=== PATIENT | female | born 1965 | race Caucasian/White ===

== ENCOUNTER 2018-10-13 16:30 | Outpatient (CLI) | payer BC ==
--- NOTE | 2018-10-13 17:13 | RAD ---
CHEST TWO VIEW 10/13/18 HISTORY: Lymphadenopathy. COMPARISON: None. FINDINGS: The lungs are clear. No pneumothorax or effusion. The cardiac silhouette and mediastinal contours are within normal limits. IMPRESSION: No acute intrathoracic abnormality. POS: [facility]
== END 2018-10-13 16:31 | disposition home or self-care (01) ==
LOC: BICRAD 16:30
PROVIDERS: ATTEND Internal Medicine
DX: R59.1 Generalized enlarged lymph nodes (principal); Z13.220 Encounter for screening for lipoid disorders; Z13.1 Encounter for screening for diabetes mellitus; E55.9 Vitamin D deficiency, unspecified; R53.83 Other fatigue
CPT/HCPCS: 36415; 71046; 80053; 80061; 81001; 82306; 83036; 84439; 84443; 85025; 85652; 86140; 86160; 86225; 86235; 86376

== ENCOUNTER 2018-10-23 07:54 | Outpatient (CLI) | payer BC ==
--- NOTE | 2018-10-23 10:32 | CT ---
NECK CT WITH IV CONTRAST: Date: 10-23-18 Comparison: None. History: Lymphadenopathy bilaterally for one year. Technique: Axial CT imaging obtained at 3 mm intervals from the skull base through the lung apices wi thout contrast. Coronal and sagittal reformatted imaging obtained. FINDINGS: There is mild mucosal thickening involving the alveolar recess of the right maxillary sinus. The visualized lung apices appear grossly unremarkable. The retroantral and parapharyngeal fat is clear bilaterally. The parotid glands and the submandibular glands appear unremarkable. Mildly prominent bilateral level 1 lymph nodes are seen anterior to the submandibular gland measuring 8 mm short axis dimension on left and 8 mm short axis dimension on right. There is an enlarged level 2A lymph node on the left measuring 1.3 cm short axis dimension. There is a 1.1 cm mildly enlarged level 2A lymph node on the right. No posterior triangle lymphadenopathy noted on either side. The region of the thyroid gland, cricoid cartilage, thyroid cartilage, hyoid bone, epiglottis, pre-ep iglottic fat, and tonsillar pillars appear unremarkable. Nasopharyngeal mucosal appears normal. Review of the osseous structures demonstrates no acute findings. No worrisome lytic or blastic bone l esions. Vascular structures of the neck appear patent. Of note, there is poor dentition with numerous caries and periapical abscess formation involving mult iple posterior left mandibular teeth and posterior right maxillary teeth. IMPRESSION: Nonspecific mild lymphadenopathy and level 2A and level 1 bilaterally. Note is made of poor dentition with numerous dental caries and periapical abscess formation. POS: [facility]
[2018-10-23] MEDS ORDERED: Iopamidol 370 76% 100 ML VIAL ONE (11:17)
== END 2018-10-23 07:55 | disposition home or self-care (01) ==
LOC: BICCT 07:54
PROVIDERS: ATTEND Internal Medicine
DX: R59.1 Generalized enlarged lymph nodes (principal); K02.9 Dental caries, unspecified; K04.7 Periapical abscess without sinus
CPT/HCPCS: 70491

== ENCOUNTER 2019-02-20 15:51 | Outpatient (CLI) | payer BC ==
[~2019-02-20 15:51] MED LIST: Iopamidol 370 76% 100 ML VIAL ONE
--- NOTE | 2019-02-20 16:48 | CT ---
CT ANGIOGRAM CHEST WITH CONTRAST CLINICAL INDICATION: Enlarged lymph nodes. History of removal of lymph nodes in the left axillary region. Patient states s he has been having pain and pressure in this region. COMPARISON: None FINDINGS: Aorta: The aorta is normal in caliber without evidence of an aortic dissection. Lungs: There is mild groundglass density seen at the posteromedial right lower lobe. This is overall nonspecific. Focal area of pneumonitis cannot be entirely excluded. No discrete pulmonary nodule, consolidation, or pleural effusion is identified. Mediastinum: Within normal limits. Thyroid gland: Normal CT appearance where visualized. Osseous structures: Mild degenerative changes are seen. No lytic or sclerotic osseous lesions are ct ntified. Chest wall: Enlarged left axillary lymph node are seen. Largest left axillary lymph node measures 1.6 cm in short axis dimension. Smaller but mildly prominent left axillary lymph nodes are seen. No right axillary lymphadenopathy is seen. Upper abdomen: Decreased attenuation of the liver suggesting fatty infiltration where visualized. IMPRESSION: 1. Left axillary lymphadenopathy. The enlarged lymph node in the left axillary region with adjacent m ildly prominent additional lymph nodes were also partially imaged on CT scan of the neck on 10/23/2018. 2. Groundglass density posteromedial right lower lobe which could be related to atelectasis, but pneu monitis is a possibility. Clinical correlation is suggested.
== END 2019-02-20 15:52 | disposition home or self-care (01) ==
LOC: BICCT 15:51
PROVIDERS: ATTEND Internal Medicine Infectious Disease
DX: R59.0 Localized enlarged lymph nodes (principal); J98.4 Other disorders of lung
CPT/HCPCS: 71260; Q9967

== ENCOUNTER 2019-03-29 08:44 | Outpatient (CLI) | payer BC ==
--- NOTE | 2019-03-29 10:57 | CT ---
CT ABDOMEN AND PELVIS WITH IV AND ORAL CONTRAST: History Left upper quadrant pain. FINDINGS: The lung bases are clear. The liver demonstrates diffusely decreased attenuation compared to the spl een consistent with fatty infiltration. No calcified gallstones are seen. The spleen, pancreas, adr enal glands, and kidneys are normal. No free air, free fluid, or lymphadenopathy is seen in the abdo men or pelvis. There are vascular calcifications without evidence of aneurysmal dilatation of the ab dominal aorta. Uterus and ovaries are present. The small bowel loops are not abnormally dilated. D egenerative changes are present in the spine. There is no evidence of appendicitis. IMPRESSION: 1. Fatty liver. 2. No evidence of acute process. POS: [facility]
== END 2019-03-29 08:45 | disposition home or self-care (01) ==
LOC: BICCT 08:44
PROVIDERS: ATTEND Internal Medicine
DX: R10.12 Left upper quadrant pain (principal); K76.0 Fatty (change of) liver, not elsewhere classified
CPT/HCPCS: 74177

== ENCOUNTER 2020-02-18 07:03 | Outpatient (CLI) | payer BC ==
--- NOTE | 2020-02-18 07:46 | ULT ---
RIGHT ANTECUBITAL FOSSA SOFT TISSUE ULTRASOUND: HISTORY: Palpable region in the antecubital fossa x1 week. COMPARISON: None. TECHNIQUE: Grayscale imaging of the right antecubital fossa was performed. Static images are submitted for inter pretation. FINDINGS: No solid or cystic masses. Visualized vasculature in the right antecubital fossa is patent. IMPRESSION: No sonographic evidence of a solid or cystic mass corresponding to the palpable focus. Additional liv ging is recommended if clinically warranted. Transcribed Date/Time: 02/18/2020 8:41 AM
== END 2020-02-18 07:04 | disposition home or self-care (01) ==
LOC: BICULT 07:03
PROVIDERS: ATTEND Internal Medicine
DX: R22.31 Localized swelling, mass and lump, right upper limb (principal)
CPT/HCPCS: 76999

== ENCOUNTER 2020-02-27 08:13 | Outpatient (CLI) | payer BC ==
--- NOTE | 2020-02-27 09:28 | MMO ---
Bilateral MAMMO Bilat Diag [facility]. CLINICAL HISTORY: Patient is 54 years old and is seen for diagnostic exam,palpable abnormality and pain in the right breast. The patient has the following family history of breast cancer: 2 maternal aunts, 30'S. The patient has no personal history of cancer. The patient has a history of left Excisional Biopsy at age 51 - benign. VIEWS: The views performed were: bilateral craniocaudal with tomosynthesis; bilateral mediolateral oblique with tomosynthesis; and bilateral mediolateral with tomosynthesis. FILMS COMPARED: The present examination has been compared to prior imaging studies performed at [facility] on 03/19/2019, and at [facility] on 02/27/2020. This study has been interpreted with the assistance of computer-aided detection. MAMMOGRAM FINDINGS: There are scattered fibroglandular densities. There is an intramammary lymph node seen in the outer region of the right breast. This appears normal mammographically and sonongraphically. There are no concerning mammographic or sonographic abnormalities in the area of palpable concern. The patient is referred back to her clinician. Negative imaging findings should not preclude biopsy if clinical findings are suspicious. There are no suspicious masses, suspicious calcifications, or new areas of architectural distortion. IMPRESSION: THERE ARE NO CONCERNING MAMMOGRAPHIC ABNORMALITIES IN THE AREA OF PALPABLE CONCERN. THE PATIENT IS REFERRED BACK TO HER CLINICIAN. NEGATIVE IMAGING FINDINGS SHOULD NOT PRECLUDE BIOPSY IF CLINICAL FINDINGS ARE SUSPICIOUS. THE RESULTS OF THIS EXAM WERE SENT TO THE PATIENT. ACR BI-RADS Category 2 - Benign finding MAMMOGRAPHY NOTE: 1. A negative mammogram report should not delay a biopsy if a dominant of clinically suspicious mass is present. 2. Approximately 10% to 15% of breast cancers are not detected by mammography. 3. Adenosis and dense breasts may obscure an underlying neoplasm. Reported by: QUIANA FORDE MD Electonically Signed: [id number]
--- NOTE | 2020-02-27 09:30 | MMO ---
Right US Breast Limited Rt. CLINICAL HISTORY: Patient is 54 years old and is seen for breast ultrasound. The patient has the following family history of breast cancer: 2 maternal aunts, 30'S. The patient has no personal history of cancer. The patient has a history of left Excisional Biopsy at age 51 - benign. VIEWS: The views performed were: . FILMS COMPARED: The present examination has been compared to prior imaging studies performed at [facility] on 03/19/2019, and at [facility] on 02/27/2020. This study has been interpreted with the assistance of computer-aided detection. RIGHT BREAST ULTRASOUND FINDINGS: There is a lymph node seen in the right breast. This appears normal. There are no concerning mammographic or sonographic abnormalities in the area of palpable concern. The patient is referred back to her clinician. Negative imaging findings should not preclude biopsy if clinical findings are suspicious. On ultrasound, no suspicious findings are identified. IMPRESSION: THERE ARE NO CONCERNING SONOGRAPHIC ABNORMALITIES IN THE AREA OF PALPABLE CONCERN. THE PATIENT IS REFERRED BACK TO HER CLINICIAN. NEGATIVE IMAGING FINDINGS SHOULD NOT PRECLUDE BIOPSY IF CLINICAL FINDINGS ARE SUSPICIOUS. A ROUTINE FOLLOW-UP MAMMOGRAM IN 1 YEAR IS RECOMMENDED. THE RESULTS OF THIS EXAM WERE SENT TO THE PATIENT. ACR BI-RADS Category 2 - Benign finding MAMMOGRAPHY NOTE: 1. A negative mammogram report should not delay a biopsy if a dominant of clinically suspicious mass is present. 2. Approximately 10% to 15% of breast cancers are not detected by mammography. 3. Adenosis and dense breasts may obscure an underlying neoplasm. Reported by: QUIANA FORDE MD Electonically Signed: [id number]
== END 2020-02-27 08:14 | disposition home or self-care (01) ==
LOC: BICMAMMO 08:13
PROVIDERS: ATTEND Internal Medicine
DX: N64.4 Mastodynia (principal)
CPT/HCPCS: 77066; G0279

== ENCOUNTER 2020-03-24 12:37 | Outpatient (CLI) | payer BC ==
--- NOTE | 2020-03-24 13:20 | ULT ---
Exam: Right axillary ultrasound HISTORY: Excisional lymph node biopsy in bilateral axilla. Right axillary lymphadenopathy. COMPARISON: none TECHNIQUE: Targeted sonographic imaging of the region of concern was performed FINDINGS: Right axillary lymphadenopathy with preserved fatty hilum. Right axillary lymph node measur es 2.3 x 1.0 cm There is a are normal right axillary lymph node with preserved fatty hilum measuring 0.8 x 1.4 cm. IMPRESSION: 2 right axillary lymph nodes as described above. Both axillary lymph nodes have preserved fatty hilum.
== END 2020-03-24 12:38 | disposition home or self-care (01) ==
LOC: SCSULT 12:37
PROVIDERS: ATTEND Internal Medicine
DX: R59.0 Localized enlarged lymph nodes (principal)
CPT/HCPCS: 76999

== ENCOUNTER 2020-04-18 10:56 | Outpatient (CLI) | payer BC ==
--- NOTE | 2020-04-18 13:32 | CT ---
CT CHEST WITH CONTRAST CLINICAL INDICATION: Axillary lymphadenopathy. Patient had lymph nodes excised from left axilla in 2017. Patient now with palpable abnormality in the right axilla. COMPARISON: 02/20/2019. FINDINGS: Aorta: The aorta is normal in caliber without evidence of an aortic dissection. Lungs: Stable less than 4 mm pulmonary nodule superior segment right lower lobe. There is a new just less than 4 mm noncalcified pulmonary nodule seen at the posteromedial right lung base. No additional pulmonary nodule or mass is seen. There is no pleural effusion. Mediastinum: No enlarged mediastinal or hilar lymph nodes are seen. Thyroid gland: Normal CT appearance where visualized. Osseous structures: Mild multilevel degenerative changes present. Chest wall: As noted on the prior exam, there are enlarged left axillary lymph nodes with largest lym ph node measuring 1.6 cm in short axis dimension which is unchanged from prior exam. Additional left axillary as well as subpectoral mildly enlarged lymph nodes are seen which are also increased in number. No enlarged right axillary lymph nodes are seen. Upper abdomen: Fatty infiltration of the visualized liver is again seen. IMPRESSION: 1. Persistent left axillary and subpectoral lymphadenopathy. No enlarged right axillary, mediastinal, or hilar lymph nodes are seen. 2. Difficult to characterize less than 4 mm pulmonary nodules right lower lobe. The pulmonary nodule posteromedial right lung base has developed in the interim. 3. Fatty infiltration of the liver.
[2020-04-18] MEDS ORDERED: Iopamidol-370 76% 500 ML 1 ML ONE (14:32)
== END 2020-04-18 10:57 | disposition home or self-care (01) ==
LOC: BICCT 10:56
PROVIDERS: ATTEND Internal Medicine
DX: R59.0 Localized enlarged lymph nodes (principal); K76.0 Fatty (change of) liver, not elsewhere classified; R91.8 Other nonspecific abnormal finding of lung field
CPT/HCPCS: 71260; Q9967

== ENCOUNTER 2021-02-16 10:05 | Outpatient (CLI) | payer BC | END 2021-02-16 10:06 | disposition home or self-care (01) | LOC: BICULT 10:05 | PROVIDERS: ATTEND Internal Medicine Gastroenterology | DX: R10.13 Epigastric pain (principal); R11.0 Nausea; R59.0 Localized enlarged lymph nodes; K76.0 Fatty (change of) liver, not elsewhere classified; K80.20 Calculus of gallbladder without cholecystitis without obstruction | CPT/HCPCS: 76705 ==

== ENCOUNTER 2021-03-05 08:30 | Outpatient (CLI) | payer BC | END 2021-03-05 08:31 | disposition home or self-care (01) | LOC: BICMAMMO 08:30 | PROVIDERS: ATTEND Internal Medicine | DX: Z12.31 Encounter for screening mammogram for malignant neoplasm of breast (principal); Z91.89 Other specified personal risk factors, not elsewhere classified | CPT/HCPCS: 77063; 77067 ==

== ENCOUNTER 2022-08-14 05:41 | Emergency (ER) | payer BC ==
[2022-08-14 06:10] LABS: #Basophils 0.1 thou/uL (0.0-0.2); #Eosinphils 0.2 thou/uL (0.0-0.7); #Lymphocytes 3.4 thou/uL (1.20-3.40); #Monocytes 0.6 thou/uL (0.11-0.59); #Neutrophils 3.3 thou/uL (1.40-6.50); %Eosinophils 2.2 % (0.0-10.0); %Lymphocytes 45.5 % (21.0-51.0); %Monocytes 7.5 % (0.0-10.0); %Neutrophils 43.8 % (42.0-75.0); Hemoglobin 13.5 g/dL (12.0-16.0); Mean Corpuscular HGB CONC 33.2 g/dL (32.0-36.0); Mean Corpuscular Hemoglobin 29.9 pg (27.0-31.0); Mean Corpuscular Volume 89.9 fl (78.0-98.0); Mean Platelet Volume 7.5 fL (7.4-10.4); Platelet Count 323 thou/uL (130-400); RBC Distribution Width 11.4 % (11.5-14.5); Red Blood Cell (RBC) Count 4.53 mill/uL (4.20-5.40); White Blood Cell (WBC) Count 7.5 thou/uL (4.8-10.8)
[2022-08-14 06:33] LABS: ALT (SGPT) 49 U/L (8-55); AST (SGOT) 33 U/L (5-34); Albumin 4.3 g/dL (3.5-5.0); Alkaline Phosphatase 109 U/L (40-110); Anion Gap 15 mmol/L (10-20); BUN (Urea Nitrogen) 12 mg/dL (9.8-20.1); Bilirubin, Total 0.2 mg/dL (0.2-1.2); Calc. Creatinine Clearance 0 mL/min (70-130); Calcium 9.5 mg/dL (7.8-10.44); Carbon Dioxide 22 mmol/L (22-29); Chloride 108 mmol/L (98-107); Estimated GFR 97; Globulin 3.5 g/dL (2.4-3.5); Glucose 109 mg/dL (70-105); Lipase 64 U/L (8-78); Potassium 3.7 mmol/L (3.5-5.1); Protein, Total 7.8 g/dL (6.0-8.3); Sodium 141 mmol/L (136-145)
[2022-08-14] MEDS ORDERED: Morphine 4 MG/ML VIAL ONE (07:16)
[2022-08-14] MEDS ORDERED: Ondansetron PF 4 MG/2 ML Vial ONE (07:16)
[2022-08-14] MEDS ORDERED: Iopamidol-370 76% 500 ML 1 ML ONE (10:47)
== END 2022-08-14 09:43 | disposition home or self-care (01) ==
LOC: ERS 05:41
DX: R07.9 Chest pain, unspecified (principal)
CPT/HCPCS: 36415; 71045; 71275; 80053; 83690; 84484; 85025; 85379; 93005; 96374; J2270; J2405; Q9967

== ENCOUNTER 2025-09-16 07:32 | Outpatient (CLI) | payer BC | END 2025-09-16 07:33 | disposition home or self-care (01) | LOC: SCSULT 07:32 | PROVIDERS: ATTEND Internal Medicine | DX: R74.01 Elevation of levels of liver transaminase levels (principal); K80.20 Calculus of gallbladder without cholecystitis without obstruction; K76.0 Fatty (change of) liver, not elsewhere classified | CPT/HCPCS: 76705; 93976 ==